=== PATIENT | female | born 1970 | race Caucasian/White ===

== ENCOUNTER → 2016-06-29 | Emergency (ER) | payer OTHER | END | disposition home or self-care (01) | LOC: FER | DX: S92.354A Nondisplaced fracture of fifth metatarsal bone, right foot, initial encounter for closed fracture (principal); F17.210 Nicotine dependence, cigarettes, uncomplicated; W19.XXXA Unspecified fall, initial encounter; Y92.830 Public park as the place of occurrence of the external cause | CPT/HCPCS: 73630; 99283 ==